=== PATIENT | female | born 1940 | race Caucasian/White ===

== ENCOUNTER 2017-11-24 03:01 | Observation (INO) | payer MEDICARE ==
[2017-11-24] MEDS ORDERED: cloNIDine 0.1 MG TAB ONE (03:59)
[2017-11-24 04:49] LABS: #Basophils 0.1 thou/uL (0.0-0.2); #Eosinphils 0.3 thou/uL (0.0-0.7); #Lymphocytes 1.3 thou/uL (1.20-3.40); #Monocytes 0.7 thou/uL (0.11-0.59); #Neutrophils 7.2 thou/uL (1.40-6.50); %Basophils 0.5 % (0.0-1.0); %Eosinophils 2.7 % (0.0-10.0); %Lymphocytes 13.5 % (21.0-51.0); %Monocytes 7.5 % (0.0-10.0); %Neutrophils 75.8 % (42.0-75.0); Hemoglobin 15.7 g/dL (12.0-16.0); Mean Corpuscular HGB CONC 32.9 g/dL (32.0-36.0); Mean Corpuscular Hemoglobin 30.2 pg (27.0-31.0); Mean Corpuscular Volume 91.6 fl (81.0-99.0); Mean Platelet Volume 7.2 fL (7.4-10.4); Platelet Count 215 thou/uL (130-400); RBC Distribution Width 13.1 % (11.5-14.5); White Blood Cell (WBC) Count 9.6 thou/uL (4.8-10.8)
[2017-11-24 05:13] LABS: ALT (SGPT) 14 U/L (8-55); AST (SGOT) 19 U/L (5-34); Albumin 4.2 g/dL (3.4-4.8); Alkaline Phosphatase 78 U/L (40-150); Anion Gap 10 mmol/L (10-20); BUN (Urea Nitrogen) 27 mg/dL (9.8-20.1); Bilirubin, Total 0.8 mg/dL (0.2-1.2); Calc. Creatinine Clearance 0 mL/min (70-130); Calcium 10.6 mg/dL (7.8-10.44); Carbon Dioxide 36 mmol/L (23-31); Chloride 95 mmol/L (98-107); Estimated GFR-MDRD 38; Globulin 4.1 g/dL (2.4-3.5); Glucose 99 mg/dL (83-110); Potassium 3.4 mmol/L (3.5-5.1); Protein, Total 8.3 g/dL (6.0-8.3); Sodium 138 mmol/L (136-145)
[2017-11-24] MEDS ORDERED: Acetaminophen 325 MG TAB PO PRN ×2 (06:34→11:25)
[2017-11-24] MEDS ORDERED: cloNIDine 0.1 MG TAB PO PRN ×2 (06:34→11:25)
[2017-11-24] MEDS ORDERED: Ondansetron HCl/PF 4 MG/2 ML Vial IVP PRN (06:34)
[2017-11-24] MEDS ORDERED: Ondansetron ODT 4 MG TAB SL PRN (06:34)
--- NOTE | 2017-11-24 11:16 | CT ---
CT CHEST WITH IV CONTRAST: Date: 11/24/17 HISTORY: Cough, abnormal chest x-ray. FINDINGS: Comparison made with the chest radiograph of same date. There is good opacification of the thoracic aorta without aneurysm or dissection. The pulmonary and a rterial vasculature is also well opacified without filling defects to suggest pulmonary embolism. No pleural or pericardial effusions are seen. There is scarring in the lung apices, right greater than left. There are patchy scattered areas of br onchiectasis and peribronchial thickening, and reticulonodular infiltrates. There is a posterior 11.0 mm lung nodule in the left lower lobe and a 10.0 mm nodule slightly superiorly in the left lower lob e. There are small nodules in the left upper lobe measuring 6.0 and 5.0 mm, respectively. There are c alcified granulomas in the visualized portions of the liver. There are degenerative changes in the sp ine. IMPRESSION: 1. Parenchymal lung changes appear predominantly chronic; however, superimposed acute infection zoe ot be excluded. 2. Indeterminate lung nodules. 3. Recommend evaluation of the lung nodules with PET scan after a course of antibiotics. POS: OFF
[2017-11-24] MEDS ORDERED: Senokot 8.6 MG TAB PO PRN (11:25)
[2017-11-24] MEDS ORDERED: Guaifenesin DM 100-10/5 ML UDCUP PO PRN (11:25)
[2017-11-24] MEDS ORDERED: Furosemide 20 MG/2 ML VIAL SLOW IVP SCH (11:45)
--- NOTE | 2017-11-24 12:08 | HP ---
REASON FOR ADMISSION: Interstitial lung disease with possible exacerbation and hypoxia. Initial unc ontrolled hypertension, resolved. HISTORY OF PRESENT ILLNESS: The patient gives history of having ringing in her ears, both ears which did not go away even after 30-40 minutes. She thought she was having low blood pressure and finally was taken to [facility]. She was found to have had systolic blood pressures of 200 there and was t ransferred here for uncontrolled hypertension. The patient was also placed on oxygen as her saturati ons were dropping into 84% on room air. She has no complaints of altered phlegm. She has dry coughi ng. No complaints of fever. No complaints of chest pain, palpitation, PND or orthopnea. She normal ly ambulates by herself. She lives with her . She follows up with Dr. 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 PAST MEDICAL AND SURGICAL HISTORY: History of chronic atrial fibrillation which she follows with Dr. 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 No current infection per Dr. Morley, glaucoma, appendectomy, x2. CURRENT MEDICATIONS: Takes aspirin 81 mg p.o. daily, flecainide 50 mg twice daily, calcium with Amber min D 1 tab twice daily, multivitamin 1 tab once daily, vitamin E 400 units p.o. daily, Cozaar 25 mg p.o. daily, latanoprost, and dorzolamide eyedrops. ALLERGIES: PENICILLIN and SULFA. PERSONAL HISTORY: Does not abuse alcohol or drugs. No history of smoking. She lives with her [facility], ambulates by herself. Does not use any assistive devices. FAMILY HISTORY: Mother of old age at the age of 96 years. Father of motor vehicle acciden t and was 74 years old when he . REVIEW OF SYSTEMS: The following complete review of systems was negative, unless otherwise mentioned in the HPI or below: Constitutional: Weight loss or gain, ability to conduct usual activities. Sk in: Rash, itching. Eyes: Double vision, pain. ENT/Mouth: Nose bleeding, neck stiffness, pain, te nderness. Cardiovascular: Palpitations, dyspnea on exertion, orthopnea. Respiratory: Shortness of breath, wheezing, cough, hemoptysis, fever or night sweats. Gastrointestinal: Poor appetite, abdom inal pain, heartburn, nausea, vomiting, constipation, or diarrhea. Genitourinary: Urgency, frequenc y, dysuria, nocturia. Musculoskeletal: Pain, swelling. Neurologic/Psychiatric: Anxiety, depressio n. Allergy/Immunologic: Skin rash, bleeding tendency. PHYSICAL EXAMINATION: GENERAL: The patient is a 77-year-old female who is currently not in any acute distress. VITAL SIGNS: On arrival here showed a blood pressure 154/86, but had pressures of 217/136 at [facility] ER on arrival. Pulse is 90 per minute, respiratory rate is 24 per minute, temperature 97.6 degrees Fahrenheit, was 84% on room air and 95% on 2 liters nasal cannula. NECK: Supple, no elevated JVD. HEENT: Extraocular muscles intact. Pupils reacting to light. Oral cavity mucous membranes are mois t. No exudates or congestion. CARDIOVASCULAR SYSTEM: S1, S2 heard. Regular rhythm. RESPIRATORY SYSTEM: Air entry 1+ bilateral. Scattered rhonchi plus no rales or wheezes. ABDOMEN: Soft, bowel sounds heard. No tenderness, rigidity or guarding. EXTREMITIES: No peripheral edema or calf tenderness. VASCULAR SYSTEM: Peripheral pulses 1+ bilateral, no ischemic ulcerations or gangrene. CENTRAL NERVOUS SYSTEM: No gross focal deficits seen. Patient is alert and oriented well. PSYCHIATRIC SYSTEM: The patient's mood is euthymic. No hallucinations or delusions. LABORATORY AND X-RAY FINDINGS: White count of 9, H and H 15 and 47, platelet count 215, MCV is 91 wi th 75% neutrophils. PT, INR, PTT within normal limits. Potassium is 3.9, BUN 30, creatinine 1.4. R epeat creatinine was 1.36, calcium 10.6, albumin is 4.2. BNP was 301. One set of cardiac enzymes ar e negative. CT chest showed parenchymal lung changes, which appear predominantly chronic with indete rminate lung nodules. EKG done shows sinus rhythm at 97 beats per minute, no gross ST-T wave changes . CLINICAL IMPRESSION AND PLAN: The patient will be under observation on telemetry for initial hyperte nsive emergency, which got resolved. The patient states her systolic blood pressures range anywhere from 88-140 at home. She follows up closely with Dr. Joey Goodman. She also appears to have mild exa cerbation of interstitial lung disease, which is mainly in the right middle lobe. This appears to be chronic. I did discuss with Dr. Morley. She has no active Mycobacterium avium complex infection. H er saturations were 84% on room air and will be placed on a short course of steroids along with empir ic Levaquin and nebulizer treatments. We will also obtain an echo with 2D Doppler for left ventricul ar function. We will continue her Cozaar, aspirin, flecainide, dorzolamide, and latanoprost eyedrops as before. No new antihypertensive medications will be placed for now except for clonidine on a p.r .n. basis.
[2017-11-24] MEDS ORDERED: Iopamidol 370 76% 100 ML VIAL ONE (13:21)
[2017-11-24] MEDS: Flecainide 50 MG TAB PO SCH (20:14)
[2017-11-24] MEDS: Dorzolamide HCl 2% Ophth Soln 10 ml Bottle L EYE SCH (20:16)
[2017-11-24] MEDS ORDERED: Famotidine 20 MG TAB PO SCH (21:00)
[2017-11-24] MEDS ORDERED: Latanoprost 0.005% Ophth Soln 2.5 ml Bottle L EYE SCH (21:00)
[2017-11-25 02:50] VITALS: BMI 19.1
[2017-11-25 05:11] LABS: #Lymphocytes 0.5 thou/uL (1.20-3.40); #Monocytes 0.1 thou/uL (0.11-0.59); #Neutrophils 6.7 thou/uL (1.40-6.50); %Basophils 0.4 % (0.0-1.0); %Lymphocytes 6.5 % (21.0-51.0); %Monocytes 1.8 % (0.0-10.0); %Neutrophils 91.3 % (42.0-75.0); Hemoglobin 13.7 g/dL (12.0-16.0); Mean Corpuscular HGB CONC 32.6 g/dL (32.0-36.0); Mean Corpuscular Hemoglobin 29.9 pg (27.0-31.0); Mean Corpuscular Volume 91.6 fl (81.0-99.0); Mean Platelet Volume 7.4 fL (7.4-10.4); Platelet Count 176 thou/uL (130-400); RBC Distribution Width 12.8 % (11.5-14.5); Red Blood Cell (RBC) Count 4.57 mill/uL (4.20-5.40); White Blood Cell (WBC) Count 7.3 thou/uL (4.8-10.8)
[2017-11-25 05:24] LABS: Anion Gap 12 mmol/L (10-20); BUN (Urea Nitrogen) 33 mg/dL (9.8-20.1); Calc. Creatinine Clearance 27 mL/min (70-130); Carbon Dioxide 33 mmol/L (23-31); Chloride 94 mmol/L (98-107); Estimated GFR-MDRD 40; Glucose 181 mg/dL (83-110); Sodium 135 mmol/L (136-145)
[2017-11-25] MEDS ORDERED: predniSONE 5 MG TAB PO SCH (08:00)
[2017-11-25 08:10] VITALS: TEMP 98
[2017-11-25] MEDS ORDERED: Multivit, Therapeutic 1 TAB PO SCH (09:00)
[2017-11-25] MEDS ORDERED: Enoxaparin Sodium 40 MG/0.4 ML SYRINGE SC SCH (09:00)
[2017-11-25] MEDS ORDERED: Aspirin 81 mg Enteric Coated Tablet PO SCH (09:00)
[2017-11-25] MEDS ORDERED: Losartan 25 MG TAB PO SCH (09:00)
[2017-11-25] MEDS: Flecainide 50 MG TAB PO SCH ×2 (10:32→10:41)
[2017-11-25] MEDS: Dorzolamide HCl 2% Ophth Soln 10 ml Bottle L EYE SCH (10:34)
[2017-11-25 11:19] VITALS: BP 114/62
--- NOTE | 2017-11-25 13:34 | PDOC.PN ---
- Subjective Encounter Start Date: 11/25/17 Encounter Start Time: 09:00 Subjective: no sob, is feeling better this am -: no chest pain or palpitations - Objective Resuscitation Status: Resuscitation Status FULL:Full Resuscitation MAR Reviewed: Yes Vital Signs & Weight: Vital Signs (12 hours) Temp Pulse Resp BP Pulse Ox 11/25/17 10:45 98.0 F 91 16 114/62 96 11/25/17 08:21 77 18 96 11/25/17 07:10 98.0 F 82 16 132/72 97 11/25/17 03:30 98.7 F 95 20 134/77 93 L Weight Weight 104 lb 14.4 oz I&O: 11/24/17 11/25/17 11/26/17 06:59 06:59 06:59 Intake Total 1214 Output Total 1250 Balance -36 Result Diagrams: 11/25/17 04:40 11/25/17 04:40 Phys Exam - Physical Examination HEENT: PERRLA, sclera anicteric Neck: no JVD, supple Respiratory: no wheezing, no rales Cardiovascular: RRR, no significant murmur Gastrointestinal: soft, non-tender, no distention, positive bowel sounds Musculoskeletal: no edema, pulses present Neurological: non-focal, moves all 4 limbs Psychiatric: normal affect, A&O x 3 Dx/Plan (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
--- NOTE | 2017-11-26 03:56 | DIS ---
DATE OF ADMISSION: 11/24/2017 DATE OF DISCHARGE: 11/25/2017 DISCHARGE DISPOSITION: To home. 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 Un controlled hypertension on admission, resolved. Paroxysmal atrial fibrillation in normal sinus rhyth m. PROCEDURES DONE DURING HOSPITALIZATION: CT chest with IV contrast done showed parenchymal lung milan es predominantly chronic in the right middle lobe area. She had indeterminate lung nodules. LABORATORY DATA: H and H 13 and 41. Platelet count 176. BUN and creatinine 27 and 1.36 and BNP of 301 on admission. Troponin x1 was negative. DISCHARGE MEDICATIONS: Norvasc 5 mg p.o. q.p.m., Cozaar 25 mg p.o. q.a.m., Levaquin 500 mg p.o. randall y for another 4 days, DuoNebs q.6 hourly p.r.n., aspirin 81 mg p.o. daily, prednisone 5 mg p.o. daily for another 4 days and to discontinue, dorzolamide and latanoprost eyedrops as before, multivitamin 1 tab once daily. ALLERGIES: PENICILLIN and SULFA. DISCHARGE PLAN: The patient to follow up with Dr. Morley on 12/26/2017. She needs to follow up with Dr. 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 Goodman's office will inform her of the date and time for appoi ntment. She needs to follow up with her primary care physician, Dr. Zelalem Burrows in 1 week. She has been advised to check blood pressure and pulse twice daily and record to follow up with Dr. Joey James or Dr. Masterson her primary care physician. BRIEF COURSE DURING HOSPITALIZATION: The patient initially got admitted after she was transferred fr [facility] for uncontrolled hypertension. She initially had ringing in her ears, which she thoug ht was due to hypotension and went to [facility]. She was found to had systolic blood pressures of 200. She was placed on multiple agents and transferred here. The patient was also found to be hypox ic with room air saturations of 84% on arrival. She quickly came up to 95% on 2 liters nasal cannula . She had mild bump in her BNP of 300. In view of x-ray changes in the right middle lobe a CT chest was ordered. The patient has known history of right middle lobe syndrome with complete resolution o f MAC infection per Dr. Morley. She was placed briefly on short burst of steroids along with Levaquin . She also received 20 mg of Lasix, all of which has currently helped her. She is 92% on room air a t the time of discharge. During her stay here, the patient has had 2-second pauses on telemetry. In view of this, I did discuss her findings with Dr. 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 Her flecainide was discontinued for the same reason. The patient is in sinus rhythm all through her stay. She was jesse ej on small dose of Norvasc in the evening and she needs to continue Cozaar in the morning. Dr. Mina Goodman's office will set up Holter or event monitor and follow up with her shortly. Their office w ill call her with followup appointment. Full updates were given to family during her stay here. Ple ase see a face to face documentation on [employer] for the day of discharge.
[2017-11-26] MEDS ORDERED: Enoxaparin Sodium 30 MG/0.3 ML SYRINGE SC SCH (09:00)
--- NOTE | 2017-11-26 13:14 | EKG ---
Test Reason : Blood Pressure : / mmHG Vent. Rate : 083 BPM Atrial Rate : 083 BPM P-R Int : 196 ms QRS Dur : 092 ms QT Int : 402 ms P-R-T Axes : 056 012 071 degrees QTc Int : 472 ms Normal sinus rhythm Possible Left atrial enlargement Borderline ECG Confirmed by JUAN DWYER, LAZARA ([id number]), desk editor JAZMYNE GASPAR ([id number]) on 11/26/2017 1:14:35 PM Referred By: Confirmed By:LAZARA MARTINEZ MD
== END 2017-11-25 13:40 | disposition home or self-care (01) ==
LOC: ERS 03:01 → 2SW 04:34
PROVIDERS: ADMIT Family Medicine; ATTEND Family Medicine
DX: I10 Essential (primary) hypertension (principal); J98.19 Other pulmonary collapse; R09.02 Hypoxemia; I48.0 Paroxysmal atrial fibrillation; Z88.0 Allergy status to penicillin; Z88.2 Allergy status to sulfonamides; Z79.82 Long term (current) use of aspirin; Z79.899 Other long term (current) drug therapy; Z98.890 Other specified postprocedural states
CPT/HCPCS: 71260; 80048; 80053; 85025 ×2; 87040; 87070; 87149 ×2; 87205; 93005; 94640 ×3; 96365; 96372; 96375; 96376 ×2; 97139 ×2; 99285; G0378; 36415; A4216; J1650; J1940; J1956; J2920; J7620

== ENCOUNTER 2017-12-26 09:29 | Outpatient (CLI) | payer MEDICARE ==
--- NOTE | 2017-12-26 10:52 | RAD ---
TWO VIEWS CHEST: Date: 12-26-17 Provided Clinical History: Dyspnea. FINDINGS: Cardiac and mediastinal silhouette is unchanged in appearance. Extensive chronic obstructive changes are again seen. Parenchymal opacity involving the right hilar region appears similar to the prior enid dy. There is no pleural fluid or pneumothorax apparent. IMPRESSION: Stable radiographic appearance of the chest. POS: [facility]
== END 2017-12-26 09:30 | disposition home or self-care (01) ==
LOC: RAD 09:29
PROVIDERS: ATTEND Internal Medicine Critical Care Medicine
DX: R06.00 Dyspnea, unspecified (principal)
CPT/HCPCS: 71046

== ENCOUNTER 2018-10-24 13:14 | Outpatient (CLI) | payer MEDICARE ==
--- NOTE | 2018-10-24 15:48 | RAD ---
CHEST TWO VIEWS: 10/24/18 HISTORY: Dyspnea. COMPARISON: 12/26/17 FINDINGS: Some marked bilateral hyperinflation was well as some linear scarring changes in the right upper lobe anteriorly also in the lingula with some blunting of the costophrenic angles and biapical pleural th ickening and some reticulonodular and linear parenchymal changes in both upper lung zones, all of wh ich appears to be stable and unchanged from the prior study. No confluent pneumonia or overt edema. M ild cardiomegaly. IMPRESSION: Extensive but overall stable chronic lung changes and hyperinflation. Mild cardiomegaly. No significa nt acute process. Atherosclerosis of the aorta. POS: [facility]
== END 2018-10-24 13:15 | disposition home or self-care (01) ==
LOC: RAD 13:14
PROVIDERS: ATTEND Internal Medicine Critical Care Medicine
DX: R06.00 Dyspnea, unspecified (principal); I51.7 Cardiomegaly; I70.0 Atherosclerosis of aorta
CPT/HCPCS: 71046